=== PATIENT | female | born 1955 | race Caucasian/White ===

== ENCOUNTER 2017-01-14 10:04 | Inpatient (IN) | payer OTHER ==
[~2017-01-14] VITALS: Ht 157.5 cm; Wt 41.3 kg
[2017-01-14 10:09] VITALS: BP_SYST 159
[2017-01-14 10:35] LABS: BASOPHILS # (AUTO) 0.1 K/uL (0.0-0.2); BASOPHILS % (AUTO) 0.8 % (0.0-2.0); EOSINOPHILS % (AUTO) 0.4 % (0.0-4.0); HEMATOCRIT 39.5 % (36-48); HEMOGLOBIN 13.5 g/dL (12.0-16.0); LYMPHOCYTES # (AUTO) 1.7 K/uL (1.0-5.5); LYMPHOCYTES % (AUTO) 16.2 % (20.5-51.5); MEAN CORPUSCULAR HEMOGLOBIN 31 pg (27-31); MEAN CORPUSCULAR HGB CONC 34 % (32-36); MEAN CORPUSCULAR VOLUME 90 fL (79.0-98.0); MONOCYTES # (AUTO) 0.8 K/uL (0.0-1.0); MONOCYTES % (AUTO) 7.5 % (1.7-9.3); NEUTROPHILS % (AUTO) 75.1 % (40.0-70.0); PLATELET COUNT (AUTO) 398 K/uL (130-430); RED BLOOD CELL COUNT(AUTO) 4.41 MIL/uL (4.2-6.2); RED CELL DISTRIBUTION WIDTH 12.6 % (9.0-15.0); WHITE BLOOD COUNT (AUTO) 10.6 K/uL (4.8-10.8)
[2017-01-14 10:39] LABS: CALCIUM 9.3 mg/dL (8.4-11.0); CREATININE 1.33 mg/dL (0.55-1.30); POTASSIUM 4.1 mmol/L (3.5-5.1)
[2017-01-14 10:43] LABS: INR 0.9 (0.8-1.2); PROTHROMBIN TIME 9.9 SECS (9.5-12.5)
[2017-01-14] MEDS ORDERED: IOHEXOL 0 ML IV ONE (10:59)
[2017-01-14 11:00] LABS: ALBUMIN 4.2 g/dL (3.4-4.8); TOTAL BILIRUBIN 0.5 mg/dL (0.0-1.0); TOTAL PROTEIN, SERUM 7.9 g/dL (6.4-8.3)
[2017-01-14] MEDS ORDERED: LORazepam 2 MG/ML VIAL (FOR ER USE) IVP ONE (12:00)
[2017-01-14 12:35] VITALS: BP_SYST 118
[2017-01-14 12:36] VITALS: BP_SYST 118
[2017-01-14 16:00] VITALS: BP_SYST 122
[2017-01-14] MEDS ORDERED: INSULIN REGULAR, HUMAN 100 UNITS/ML, 10 ML VIAL (novoLIN R) SUBCUT PRN (16:45)
[2017-01-14] MEDS ORDERED: DEXTROSE 50% JECT 50 ML DISP.SYRIN IVP PRN (16:45)
[2017-01-14] MEDS ORDERED: ASPIRIN 81 MG TABLET(ECOTRIN) PO ONE (18:15)
[2017-01-14] MEDS ORDERED: ACETAMINOPHEN 325 MG TABLET PO PRN (18:15)
[2017-01-14] MEDS ORDERED: ENOXAPARIN SODIUM 40 MG/0.4 ML SYRINGE SUBCUT SCH (18:15)
[2017-01-14 18:41] LABS: CKMB RELATIVE INDEX 5.7 (0.0-2.9); CREATINE KINASE MB 17.5 ng/mL (0-3.6)
[2017-01-14] MEDS: traMADol HCL HCL 50 MG TABLET (ULTRAM) PO PRN (18:44)
[2017-01-14] MEDS ORDERED: NITROGLYCERIN 0.4 MG TAB.SUBL SL PRN (19:00)
[2017-01-14] MEDS ORDERED: ENOXAPARIN SODIUM 40 MG/0.4 ML SYRINGE ONE (19:02)
[2017-01-14] MEDS: FAMOTIDINE 20 MG TABLET PO SCH (20:28)
[2017-01-14 23:19] VITALS: BP_SYST 98
[2017-01-15 04:32] VITALS: BP_SYST 96
[2017-01-15] MEDS: traMADol HCL HCL 50 MG TABLET (ULTRAM) PO PRN (05:48)
[2017-01-15 06:39] LABS: POTASSIUM 4.2 mmol/L (3.5-5.1)
[2017-01-15 06:40] LABS: CREATININE 1.04 mg/dL (0.55-1.30); TOTAL BILIRUBIN 0.3 mg/dL (0.0-1.0)
[2017-01-15 06:44] LABS: ALBUMIN 3.7 g/dL (3.4-4.8); TOTAL PROTEIN, SERUM 7.2 g/dL (6.4-8.3)
[2017-01-15 08:00] VITALS: BP_SYST 95
[2017-01-15 08:53] LABS: CHOLESTEROL 236 mg/dL (<200); HDL CHOLESTEROL 51 mg/dL (>55); LDL CHOLESTEROL 153 mg/dL (<100); TRIGLYCERIDES 162 mg/dL (30-150)
[2017-01-15 09:05] LABS: BASOPHILS # (AUTO) 0.1 K/uL (0.0-0.2); BASOPHILS % (AUTO) 0.6 % (0.0-2.0); EOSINOPHILS # (AUTO) 0.1 K/uL (0.0-0.4); EOSINOPHILS % (AUTO) 0.7 % (0.0-4.0); HEMATOCRIT 41.6 % (36-48); HEMOGLOBIN 13.9 g/dL (12.0-16.0); LYMPHOCYTES # (AUTO) 2.6 K/uL (1.0-5.5); LYMPHOCYTES % (AUTO) 22.7 % (20.5-51.5); MEAN CORPUSCULAR HEMOGLOBIN 30 pg (27-31); MEAN CORPUSCULAR HGB CONC 33 % (32-36); MEAN CORPUSCULAR VOLUME 91 fL (79.0-98.0); MONOCYTES # (AUTO) 1.1 K/uL (0.0-1.0); MONOCYTES % (AUTO) 9.8 % (1.7-9.3); NEUTROPHILS # (AUTO) 7.4 K/uL (1.8-7.7); NEUTROPHILS % (AUTO) 66.2 % (40.0-70.0); PLATELET COUNT (AUTO) 394 K/uL (130-430); RED BLOOD CELL COUNT(AUTO) 4.59 MIL/uL (4.2-6.2); RED CELL DISTRIBUTION WIDTH 12.8 % (9.0-15.0); WHITE BLOOD COUNT (AUTO) 11.3 K/uL (4.8-10.8)
[2017-01-15] MEDS: FAMOTIDINE 20 MG TABLET PO SCH ×2 (09:08→20:12)
[2017-01-15] MEDS: ASPIRIN 81 MG TABLET(ECOTRIN) PO SCH (09:09)
[2017-01-15] MEDS ORDERED: ACETAMINOPHEN 325 MG TABLET PO PRN (10:30)
[2017-01-15] MEDS: ENOXAPARIN SODIUM 40 MG/0.4 ML SYRINGE SUBCUT SCH ×2 (10:37→20:12)
[2017-01-15 11:21] VITALS: BP_SYST 97
[2017-01-15] MEDS: MORPHINE 2 MG/ML INJ. SYRINGE IVP PRN ×3 (13:09→20:13)
[2017-01-15 16:04] VITALS: BP_SYST 99
[2017-01-15 20:20] VITALS: BP_SYST 107
[2017-01-15 23:35] LABS: BILIRUBIN,URINE NEGATIVE (NEGATIVE); BLOOD, URINE 2+ (NEGATIVE); CLARITY/URINE CLEAR (CLEAR); COLOR,URINE YELLOW (YELLOW); GLUCOSE,URINE NEGATIVE (NEGATIVE); KETONES,URINE NEGATIVE (NEGATIVE); LEUKOCYTE ESTERASE ,URINE NEGATIVE (NEGATIVE); NITRITE, URINE NEGATIVE (NEGATIVE); PROTEIN URINE NEGATIVE (NEGATIVE); UROBILINOGEN,URINE 0.2 (0.2-1.0)
[2017-01-16 00:05] LABS: BARBITURATE, URINE NEGATIVE (NEG <=200); BENZODIAZEPINE, URINE POSITIVE (NEG <=150); CANNABINOID, URINE POSITIVE (NEG <=50); COCAINE, URINE NEGATIVE (NEG <=150); METHAMPHETAMINES SCREEN,URINE NEGATIVE (NEG <=500); OPIATE, URINE POSITIVE (NEG <=100); PHENCYCLIDINE SCREEN,URINE NEGATIVE (NEG <=25); URINE AMPHETAMINE NEGATIVE (NEG <=500); URINE METHADONE NEGATIVE (NEG <=200)
[2017-01-16 00:06] LABS: UR TRICYCLIC ANTIDEPRESSANTS NEGATIVE (NEG <=300); URINE OXYCODONE SCREEN NEGATIVE (NEG <=100); URINE PROPOXYPHENE SCREEN NEGATIVE (NEG <=300)
[2017-01-16 00:08] LABS: BACTERIA,URINE FEW /HPF (None Seen); MUCUS,URINE None Seen /LPF (None Seen); WBC,URINE 0-3 /HPF (0-3)
[2017-01-16 00:42] VITALS: BP_SYST 95
[2017-01-16] MEDS: MORPHINE 2 MG/ML INJ. SYRINGE IVP PRN ×2 (02:16→08:09)
[2017-01-16 03:46] VITALS: BP_SYST 102
[2017-01-16] MEDS: FAMOTIDINE 20 MG TABLET PO SCH (08:09)
[2017-01-16] MEDS: ASPIRIN 81 MG TABLET(ECOTRIN) PO SCH (08:09)
[2017-01-16] MEDS: ENOXAPARIN SODIUM 40 MG/0.4 ML SYRINGE SUBCUT SCH (08:10)
[2017-01-16] MEDS ORDERED: ONDANSETRON HCL 4 MG/2 ML VIAL IVP PRN (09:00)
[2017-01-16] MEDS ORDERED: ATORVASTATIN 20 MG TABLET PO SCH (09:00)
[2017-01-16] MEDS ORDERED: METOPROLOL SUCCINATE 50 MG TAB.SR.24H (TOPROL XL) PO SCH (09:00)
[2017-01-16] MEDS ORDERED: METOPROLOL TARTRATE 50 MG TABLET ONE (09:11)
[2017-01-16] MEDS ORDERED: ONDANSETRON HCL 4 MG/2 ML VIAL ONE (09:11)
[2017-01-16] MEDS ORDERED: METOPROLOL TARTRATE 5 MG/5 ML VIAL IVP ONE (09:35)
[2017-01-16] MEDS ORDERED: METOPROLOL TARTRATE 5 MG/5 ML VIAL ONE (09:45)
[2017-01-16 13:17] VITALS: BP_SYST 110
[2017-01-16 14:36] VITALS: BP_SYST 87
== END 2017-01-16 15:25 | disposition short-term general hospital (02) | DRG 280 ==
LOC: SED 11:41 → STU 12:04
PROVIDERS: ADMIT Internal Medicine; ATTEND Internal Medicine
DX: I21.4 Non-ST elevation (NSTEMI) myocardial infarction (principal); E43 Unspecified severe protein-calorie malnutrition; N17.9 Acute kidney failure, unspecified; J44.9 Chronic obstructive pulmonary disease, unspecified; I10 Essential (primary) hypertension; E11.9 Type 2 diabetes mellitus without complications; F17.200 Nicotine dependence, unspecified, uncomplicated; F41.9 Anxiety disorder, unspecified; G89.4 Chronic pain syndrome; E78.5 Hyperlipidemia, unspecified; Z88.6 Allergy status to analgesic agent; Z79.4 Long term (current) use of insulin; Z79.899 Other long term (current) drug therapy
CPT/HCPCS: 36415; 71250-TC; 80053; 80061; 80307; 81000-TC; 82550-TC; 82553-TC; 82962; 84484; 85025; 85610-TC; 85730-TC; 93005; 93306; 96374; 99285; J1650; J1815; J2060; J2270; J2405; J3490; Q9967

== ENCOUNTER 2022-10-16 15:55 | Inpatient (IN) | payer OTHER ==
[~2022-10-16] VITALS: Ht 154.9 cm; Wt 51.3 kg
[~2022-10-16 15:55] MED LIST: NEU300 PO
--- NOTE | 2022-10-16 15:59 | NUR ---
Patient to ER bed 06 to gown for evaluation. Side rails up.
[2022-10-16 16:00] VITALS: BP_SYST 117
--- NOTE | 2022-10-16 16:24 | NUR ---
FIRST CONTACT. PT MOVED FROM TO [facility]. DIANA REMOVED FOR X-RAY. COMFORT MEASURES AND SUPPORTIVE CARE INITIATED. SEEN BY DR. WOODS. X-RAY AT .
--- NOTE | 2022-10-16 17:03 | NUR ---
X-RAY COMPLETE. NO FURTHER ORDERS AT THIS TIME. CT COMPLETE.
[2022-10-16] MEDS ORDERED: MORPHINE 4 MG INJ. 4 MG/ML VIAL IVP ONE (17:15)
--- NOTE | 2022-10-16 17:57 | NUR ---
covid nasal swab collected and sent to lab
--- NOTE | 2022-10-16 17:59 | NUR ---
AT BEDSIDE EXAMINING PATIENT
[2022-10-16 18:03] LABS: BASOPHILS # (AUTO) 0.1 K/uL (0.0-0.2); BASOPHILS % (AUTO) 1.1 % (0.0-2.0); EOSINOPHILS # (AUTO) 0.2 K/uL (0.0-0.4); EOSINOPHILS % (AUTO) 1.7 % (0.0-4.0); HEMATOCRIT 37.3 % (36-48); HEMOGLOBIN 13.2 g/dL (12.0-16.0); LYMPHOCYTES # (AUTO) 3.4 K/uL (1.0-5.5); LYMPHOCYTES % (AUTO) 34.6 % (20.5-51.5); MEAN CORPUSCULAR HEMOGLOBIN 32 pg (27-31); MEAN CORPUSCULAR HGB CONC 35 % (32-36); MEAN CORPUSCULAR VOLUME 90 fL (79.0-98.0); MONOCYTES # (AUTO) 0.8 K/uL (0.0-1.0); MONOCYTES % (AUTO) 8.7 % (1.7-9.3); NEUTROPHILS # (AUTO) 5.3 K/uL (1.8-7.7); NEUTROPHILS % (AUTO) 53.9 % (40.0-70.0); PLATELET COUNT (AUTO) 327 K/uL (130-430); RED BLOOD CELL COUNT(AUTO) 4.15 MIL/uL (4.2-6.2); RED CELL DISTRIBUTION WIDTH 13.5 % (9.0-15.0); WHITE BLOOD COUNT (AUTO) 9.7 K/uL (4.8-10.8)
[2022-10-16] MEDS ORDERED: HYDROcodone/ACETAMIN 5-325 MG TAB (NORCO/ VICODIN) PO PRN (18:15)
[2022-10-16 18:17] LABS: CREATININE 1.47 mg/dL (0.55-1.30)
[2022-10-16 18:22] LABS: ALBUMIN 3.7 g/dL (3.4-4.8); PROTHROMBIN TIME 9.9 SECS (9.5-12.5); TOTAL BILIRUBIN 0.3 mg/dL (0.0-1.0)
--- NOTE | 2022-10-16 19:32 | NUR ---
Admit bed requested Patient will be admitted to care of Dr.N. CHANDRA. Admitted to TELEMETRY unit. Diagnosis LEFT HIP FRACTURE Inpatient (Yes or No) Y Observation (Yes or No) N Orientation concerns or request close to nursing station (Yes or No) N Covid Status NEG On vent or bipap N Isolation requirements Needs a sitter N From Home (Yes or if No enter name of facility) Y Requires Dialysis (Yes or No) N Med Rec Completed (Yes of No) Y
[2022-10-16 20:33] VITALS: BP_SYST 93
--- NOTE | 2022-10-16 20:33 | NUR ---
ADMISSION NOTE Received patient from ER via gurney. Patient admitted with diagnosis of LEFT HIP FX. Patient is awake, alert, oriented X 4. Patient oriented to hospital room, call light, toileting, pain management and safety-teach back done. Patient informed that their room number is 109A. Personal belongings checked and Belongings List documented. Call light within reach.
[2022-10-16] MEDS: ONDANSETRON HCL 4 MG/2 ML VIAL IVP PRN (22:05)
[2022-10-16] MEDS: MORPHINE 2 MG/ML INJ. SYRINGE IVP PRN (22:06)
--- NOTE | 2022-10-16 23:35 | NUR ---
COX CATHETER INSERTION Inserted by charge nurse using sterile technique. Pt tolerated well with immediate urine return. UA sent to lab
[2022-10-16] MEDS: D5/0.45 NS 1,000 ML IV SCH (23:37)
[2022-10-17] VITALS (9 sets, daily range): BP systolic 86–126
[2022-10-17 00:07] LABS: BILIRUBIN,URINE NEGATIVE (NEGATIVE); CLARITY/URINE CLEAR (CLEAR); COLOR,URINE YELLOW (YELLOW); GLUCOSE,URINE NEGATIVE (NEGATIVE); KETONES,URINE TRACE (NEGATIVE); LEUKOCYTE ESTERASE ,URINE NEGATIVE (NEGATIVE); NITRITE, URINE NEGATIVE (NEGATIVE); PROTEIN URINE NEGATIVE (NEGATIVE); UROBILINOGEN,URINE 0.2 (0.2-1.0)
[2022-10-17 00:15] LABS: BLOOD, URINE TRACE (NEGATIVE)
[2022-10-17 00:37] LABS: BACTERIA,URINE None Seen /HPF (None Seen); WBC,URINE 0-3 /HPF (0-3)
--- NOTE | 2022-10-17 05:03 | NUR ---
PAGED PAGED DOCTOR Percy YOUSSEF FOR ORDERS
[2022-10-17] MEDS ORDERED: NACL 0.9% 1,000 ML IV ONE (05:15)
[2022-10-17] MEDS ORDERED: KETOROLAC TROMETHAMINE 30 MG VIAL IVP PRN (05:15)
--- NOTE | 2022-10-17 05:15 | NUR ---
LOW BP Pt c/o pain in her left hip and asking for pain medication. BP checked and read systolic in the 80s after multiple rechecks. Informed Dr Eduardo (preparation room worker for Dr Rodriguez), ordered 1L NS bolus and toradol IVP for pain.
[2022-10-17] MEDS: KETOROLAC TROMETHAMINE 30 MG VIAL IVP PRN ×3 (05:58→23:40)
--- NOTE | 2022-10-17 07:00 | NUR ---
CLOSING NOTE Pt awake lying in bed. No s/s of respiratory distress. Breathing even and unlabored on RA. BP improved at 103/59. Giles catheter intact and draining by gravity. IV site intact and patent with fluids running at ordered rate. All needs met throughout shift. Fall and safety checks in place with bed in lowest position, bed alarm on, and call light within reach
[2022-10-17] MEDS: ONDANSETRON HCL 4 MG/2 ML VIAL IVP PRN ×3 (08:53→21:03)
[2022-10-17] MEDS: D5/0.45 NS 1,000 ML IV SCH ×2 (08:54→21:22)
[2022-10-17] MEDS: MORPHINE 2 MG/ML INJ. SYRINGE IVP PRN ×3 (08:54→21:04)
[2022-10-17] MEDS ORDERED: ENOXAPARIN SODIUM 30 MG/0.3 ML SYRINGE SUBCUT ONE (13:30)
--- NOTE | 2022-10-17 16:11 | NUR ---
CONSULTATION PAGED REASON FOR CONSULTATION: CARDIAC CLEARANCE WAS CONSULT CALLED? Y PERSON WHO WAS NOTIFIED: TEXT MESSAGED KATEY VALLE CONSULTING PHYSICIAN: KATEY VALLE PLUG PASTER SPECIALTY: CARDIO PLUG PASTER PHONE NUMBER: [phone] REQUESTING PHYSICIAN: JOE JIANG
--- NOTE | 2022-10-17 20:28 | NUR ---
Dr. Daria Weiner s/w and informed patient in severe pain and Morphine, not due, it is q6p. Received medication order same dose change Q4P severe pain and hold Lovenox dose: TORB
[2022-10-17] MEDS ORDERED: MORPHINE 2 MG/ML INJ. SYRINGE ONE (20:50)
[2022-10-17] MEDS: ENOXAPARIN SODIUM 30 MG/0.3 ML SYRINGE SUBCUT SCH (21:00)
--- NOTE | 2022-10-17 21:04 | NUR ---
C/O ; MORPHINE, ZOFRAN PATIENT REPORTS SEVERE PAIN AND REQUESTING PAIN MED AND ZOFRAN, PRESENTLY NO NAUSEA, BUT WANTS TO PREVENT IT. ADMINISTERED MORPHINE AND ZOFRAN ORDERED.
[2022-10-18] VITALS (8 sets, daily range): BP systolic 113–130
--- NOTE | 2022-10-18 00:10 | NUR ---
NPO Reminded of NPO status, she took one last sip of water. Water and food items removed from bedside table and placed NPO cone. VSS stable
--- NOTE | 2022-10-18 02:55 | NUR ---
ROUNDS, RESTING PATIENT RESTING W/EYES CLOSED, NO GRIMACING, NO DISTRESS. SAFETY PRECAUTIONS IN PLACE AND CALL LIGHT W/IN REACH.
[2022-10-18] MEDS: ONDANSETRON HCL 4 MG/2 ML VIAL IVP PRN ×2 (03:55→21:16)
[2022-10-18] MEDS: MORPHINE 2 MG/ML INJ. SYRINGE IVP PRN ×4 (03:56→21:16)
--- NOTE | 2022-10-18 03:56 | NUR ---
PAIN MED; MORPHINE, MRSA SWAB PATIENT AWAKE AND REPORTS PAIN IF SHE MOVES, SHE TRIES TO LYE STILL, BUT PAIN IS RETURNING. REPORTS SEVERE PAIN AND REQUESTING PAIN MED AND ALSO ZOFRAN, NO NAUSEA NOW BUT WANTS TO PREVENT IT. ADMINISTERED MORPHINE AND ZOFRAN ORDERED. ICE PACKS TO LEFT HIP MRSA SWAB; EXPLAINED PROCEDURE SHE AGREED AND SAMPLE TAKEN, WILL SUBMIT TO LAB. Addendum: 10/18/22 at 0430 by Lexii Breaux RN V/S: BP114/69, HR 74, 95% ON ROOM AIR
--- NOTE | 2022-10-18 08:15 | NUR ---
OPENING NOTES: PATIENT IN BED A/OX 4. NO S/S OF DISTRESS. PATIENT COMPLAINING OF PAIN LEVEL OF 8 RADIATING FROM LEFT HIP. BREATHING IS EVEN AND UNLABORED ON RA 97%. WASHED PATIENT FACE PER HER REQUEST AND HAD MY RN ADMINISTER HER IV MORPHINE. PATIENT HAS BEEN NPO SINCE MIDNIGHT FOR SURGERY SCHEDULED AT 12NOON 10/18/22. CONSENT FORMS ARE SIGNED AND IN PATIENT CHART PER SECURITY ARCHITECT NURSE. SURGERY CHECKS LIST IS COMPLETED. ORDERED EKG AND TYPE AND CROSS TO COMPLETE THE CHECKLIST. HUNG NEW IV BAG OF FLUIDS. D5 1/2 NS @100MLS/HR. VITAL SIGNS ARE STABLE. EDUCATED PATIENT ON USE OF CALL LIGHT SHOULD SHE NEED ANYTHING. ALL NEEDS MET AT THIS TIME, SAFETY CHECKS MADE AND CALL LIGHT WITHIN REACH. Addendum: 10/18/22 at 0822 by Franny Sexton LVN HOLDING LOVENOX THAT IS SCHEDULED FOR THIS MORNING DUE TO PENDING SURGERY.
[2022-10-18] MEDS: ENOXAPARIN SODIUM 30 MG/0.3 ML SYRINGE SUBCUT SCH ×2 (08:22→21:28)
--- NOTE | 2022-10-18 10:08 | NUR ---
DR VELÁSQUEZ AT BEDSIDE
--- NOTE | 2022-10-18 11:54 | NUR ---
PT TAKEN TO SURGERY PRE-OP VITALS 98.2 TEMP, 97% O2, 16 R. 86 HEART RATE, 134/71 BP
[2022-10-18] MEDS ORDERED: fentaNYL CITRATE/PF 100 MCG/2 ML AMP ONE (11:55)
[2022-10-18] MEDS ORDERED: NS 1000 ML IV.SOLN IV ONE (11:55)
[2022-10-18] MEDS ORDERED: NS IRRIG SOLN 1000 ML IR ONE (11:55)
[2022-10-18] MEDS ORDERED: MEPERIDINE 50 MG/ML VIAL ONE (11:55)
[2022-10-18] MEDS ORDERED: CEFAZOLIN 2 GM IVPB PREMIX 50 ML IV ONE (11:55)
[2022-10-18] MEDS ORDERED: ONDANSETRON HCL 4 MG/2 ML VIAL ONE (11:55)
[2022-10-18] MEDS ORDERED: PROPOFOL 200MG/ 20ML VIAL (DIPRIVAN) IV ONE (11:55)
[2022-10-18] MEDS ORDERED: SEVOFLURANE 15 MIN GAS INH ONE (11:55)
[2022-10-18] MEDS ORDERED: BUPIVACAINE /EPINEPHRINE/PF 0.5% 30 ML VIAL INJ ONE (11:55)
[2022-10-18] MEDS ORDERED: MEPERIDINE HCL/PF 25 MG/ML DISP.SYRIN IVP PRN (12:30)
[2022-10-18] MEDS ORDERED: NACL 0.9% 1,000 ML IV SCH (12:30)
[2022-10-18] MEDS ORDERED: METOCLOPRAMIDE HCL 10 MG/2 ML VIAL IVP PRN (12:30)
[2022-10-18] MEDS ORDERED: ONDANSETRON HCL 4 MG/2 ML VIAL IVP PRN (12:30)
[2022-10-18] MEDS ORDERED: HYDROmorphone 1 MG/ML INJ. CARTRIDGE IVP PRN (12:30)
[2022-10-18] MEDS ORDERED: KETOROLAC TROMETHAMINE 30 MG VIAL IVP PRN (12:30)
[2022-10-18] MEDS: ceFAZolin SODIUM 2 GM in D5W 100 ML IV SCH ×2 (14:00→21:28)
[2022-10-18] MEDS: HYDROmorphone 1 MG/ML INJ. CARTRIDGE ONE ×2 (14:00→14:15)
--- NOTE | 2022-10-18 14:30 | NUR ---
PT BACK FROM SURGERY. REPOSITIONED FOR COMFORT WITH PILLOW SUPPORT. VITAL SIGNS ARE STABLE. SAFETY CHECKS MADE AND CALL LIGHT WITHIN REACH.
[2022-10-18] MEDS: D5/0.45 NS 1,000 ML IV SCH (15:15)
--- NOTE | 2022-10-18 19:20 | NUR ---
Opening note Received SBAR report from PHILIP Blanton. Patient is awake and watching t.v. Meal tray is on bedside and she reports can't eat more, not much appetite and some nausea. No distress, watching, t.v. Nonlabored breathing on room air. Giles drainage bag to gravity is collecting yellow urine. IVF infusing via IV to LFA. Surgical dressing to left hip is clean, dry and intact. Locked bed in lowest position, side rails up and bed alarm on. Call light is w/in reach.
--- NOTE | 2022-10-18 20:25 | NUR ---
REPOSITION, LINEN Patient's sheets, blankets are wet from IV which was leaking. She was repositioned for comfort, though she preferred to stay supine with pillow support on left hip/side. Provide with new sheets. Ice pack to left hip and also requested a sprite which was given.
--- NOTE | 2022-10-18 21:16 | NUR ---
morphine, zofran Administered Morphine for severe pain and Zofran for nausea (mild) no vomiting.
[2022-10-18] MEDS: KETOROLAC TROMETHAMINE 30 MG VIAL IVP PRN (23:16)
--- NOTE | 2022-10-18 23:35 | NUR ---
Toradol, Bed harris Patient reporting moderate pain and administered Toradol as ordered. She requested bed harris for BM. Had very loose, light brown w/particle stool. She was repositioned for comfort. Safety precautions in place.
[2022-10-19] VITALS (8 sets, daily range): BP systolic 74–126
[2022-10-19] MEDS: D5/0.45 NS 1,000 ML IV SCH ×3 (00:36→21:15)
--- NOTE | 2022-10-19 00:48 | NUR ---
IVF IV alarmed and patient called. Hung new bag of D5 1/2 NS, infusing well.
[2022-10-19] MEDS: MORPHINE 2 MG/ML INJ. SYRINGE IVP PRN (02:06)
--- NOTE | 2022-10-19 02:06 | NUR ---
Morphine, BM c/o severe pain administered Morphine as ordered. She requested bed harris for BM. Had loose, light brown w/particle stool. She was repositioned for comfort. Safety precautions in place.
--- NOTE | 2022-10-19 03:10 | NUR ---
BM requesting bed harris for stool. loose stool., pericare
--- NOTE | 2022-10-19 03:50 | NUR ---
fever patient unable to wait for bedpan and soiled bed. she is anxious and is stating "they are out to get me", "they are doing this to me". She is not confused, though anxious and not her baseline; assessed v/s. 124/57,HR 1087 101.8 temporal scan, resp 20, 95% spo2 room air.
--- NOTE | 2022-10-19 04:00 | NUR ---
, fever, tachy Notified Dr. Brown patient was getting restless; assessed v/s and found: fever 101.8, tachycardia 108; Received septic protocol orders; lactic acid x2, BCx2, NS bolus(30ml/kg); and Tylenol for fever: torb
[2022-10-19] MEDS ORDERED: NS 500 ML IV ONE (04:15)
[2022-10-19] MEDS ORDERED: ACETAMINOPHEN 500 MG TABLET PO PRN (04:15)
[2022-10-19] MEDS ORDERED: NACL 0.9% 1,000 ML IV ONE (04:15)
--- NOTE | 2022-10-19 04:51 | NUR ---
SEPSIS PROTOCOL technical aid took lab draws. NS bolus infusing. Administered Tylenol for fever. Presently reports she is comfortable. henri
[2022-10-19] MEDS: ceFAZolin SODIUM 2 GM in D5W 100 ML IV SCH (06:09)
--- NOTE | 2022-10-19 06:20 | NUR ---
Scheduled antibiotic Scheduled Ancef administered, infusing well. Reviewed side effects and she verbalized understanding. Lab is at bedside for second Lactic acid draw.
--- NOTE | 2022-10-19 07:30 | NUR ---
OPENING NOTES: PT IN BED A/OX 4, TALKING AND OBEYING COMMANDS. THE TAR KETTLE RUNNER RN AND MYSELF CLEANED THE PT HAS SHE HAD A BM. SENT A SPECIMEN OF THE BM TO THE LAB PATIENT HAD 5 WATER STOOLS DURING THE NIGHT. NO S/S OF DISTRESS. PT REPORTED PAIN OF 6. BREATHING IS EVEN AND UNLABORED ON RA 96%. BLOOD PRESSURE IS 74/43. CONTACTED DR CHAPMAN FOR ORDERS AND TO NOTIFY OF BLOOD PRESSURE. WAITING FOR CALL BACK. HAVE BP MACHINE ATTACHED TO PATIENT MONITORING BLOOD PRESSURE EVERY 15 MINUTES. LAST BLOOD PRESSURE CHECKS AT 844AM WAS 88/60. EDUCATED PATIENT ON USE OF CALL LIGHT. SAFETY CHECKS MADE AND CALL LIGHT WITHIN REACH.
--- NOTE | 2022-10-19 08:54 | NUR ---
ANOTHER PAGE TO ATTENDING MD DR CHAPMAN, RE: LOW BP OF 80/43. SPOKE TO LEÓN.
[2022-10-19] MEDS: ENOXAPARIN SODIUM 30 MG/0.3 ML SYRINGE SUBCUT SCH ×2 (09:02→22:08)
[2022-10-19 10:16] LABS: BASOPHILS # (AUTO) 0.1 K/uL (0.0-0.2); BASOPHILS % (AUTO) 0.7 % (0.0-2.0); EOSINOPHILS # (AUTO) 0.1 K/uL (0.0-0.4); EOSINOPHILS % (AUTO) 0.8 % (0.0-4.0); HEMOGLOBIN 10.6 g/dL (12.0-16.0); LYMPHOCYTES # (AUTO) 0.7 K/uL (1.0-5.5); LYMPHOCYTES % (AUTO) 4.7 % (20.5-51.5); MEAN CORPUSCULAR HEMOGLOBIN 30 pg (27-31); MEAN CORPUSCULAR HGB CONC 33 % (32-36); MEAN CORPUSCULAR VOLUME 92 fL (79.0-98.0); MONOCYTES # (AUTO) 1.9 K/uL (0.0-1.0); MONOCYTES % (AUTO) 12.4 % (1.7-9.3); NEUTROPHILS # (AUTO) 12.5 K/uL (1.8-7.7); NEUTROPHILS % (AUTO) 81.4 % (40.0-70.0); PLATELET COUNT (AUTO) 270 K/uL (130-430); RED BLOOD CELL COUNT(AUTO) 3.48 MIL/uL (4.2-6.2); WHITE BLOOD COUNT (AUTO) 15.3 K/uL (4.8-10.8)
[2022-10-19 10:21] LABS: CALCIUM 7.3 mg/dL (8.4-11.0); CREATININE 1.09 mg/dL (0.55-1.30)
[2022-10-19 10:27] LABS: ALBUMIN 2.5 g/dL (3.4-4.8); TOTAL BILIRUBIN 0.5 mg/dL (0.0-1.0)
[2022-10-19] MEDS: NACL 0.9% 1,000 ML IV SCH ×2 (10:43→18:30)
[2022-10-19] MEDS ORDERED: traMADol HCL HCL 50 MG TABLET (ULTRAM) PO PRN ×2 (11:30→11:45)
[2022-10-19] MEDS ORDERED: NALOXONE HCL 0.4 MG/ML AMP (NARCAN) IVP ONE (11:30)
[2022-10-19] MEDS ORDERED: MELOXICAM 7.5 MG TABLET PO PRN (11:45)
--- NOTE | 2022-10-19 12:01 | NUR ---
NARCAN GIVEN BY RN. PT BLOOD PRESSURE AT 111/ 75. HEART RATE 88, O2 99%, RESPIRATIONS 16.
[2022-10-19] MEDS: traMADol HCL HCL 50 MG TABLET (ULTRAM) PO PRN (15:53)
--- NOTE | 2022-10-19 18:42 | NUR ---
CLOSING NOTES: PT IN BED A/OX 4. FAMILY AT BEDSIDE. NO S/S OF DISTRESS OR PAIN REPORTED. BREATHING IS EVEN AND UNLABORED ON RA 97% PT VITALS SIGNS ARE STABLE. IV FLUIDS ARE RUNNING. EDUCATED PT ON USE OF CALL LIGHT AND IT IS WITHIN REACH. ALL NEEDS MET AT THIS TIME, SAFETY CHECKS MADE AND CALL LIGHT WITHIN REACH.
--- NOTE | 2022-10-19 20:30 | NUR ---
RECEIVED PATIENT AT BEDSIDE. AXO 4 EATING DINNER. NO S/S OF DISTRESS OR PAIN. BREATHING IS UNLABORED RA 96. VITALS ARE STABLE. IV FLUIDS ARE RUNNING. ALL NEEDS MET AT THIS TIME. SAFETY CHECKS DONE AND CALL LIGHT WITH IN REACH.
[2022-10-19] MEDS: MELOXICAM 7.5 MG TABLET PO PRN (22:44)
--- NOTE | 2022-10-19 22:46 | NUR ---
PATIENT STATES AN 8 OUT OF 10 PAIN. ADMINISTERED MELOXICAM.
[2022-10-20 00:17] VITALS: BP_SYST 126
[2022-10-20] MEDS: D5/0.45 NS 1,000 ML IV SCH ×2 (06:17→21:52)
[2022-10-20 06:30] LABS: BASOPHILS % (AUTO) 0.3 % (0.0-2.0); EOSINOPHILS # (AUTO) 0.3 K/uL (0.0-0.4); EOSINOPHILS % (AUTO) 2.4 % (0.0-4.0); HEMATOCRIT 27.9 % (36-48); HEMOGLOBIN 9.3 g/dL (12.0-16.0); LYMPHOCYTES # (AUTO) 2.7 K/uL (1.0-5.5); LYMPHOCYTES % (AUTO) 20.7 % (20.5-51.5); MEAN CORPUSCULAR HEMOGLOBIN 30 pg (27-31); MEAN CORPUSCULAR HGB CONC 33 % (32-36); MEAN CORPUSCULAR VOLUME 91 fL (79.0-98.0); MONOCYTES # (AUTO) 1.4 K/uL (0.0-1.0); MONOCYTES % (AUTO) 10.2 % (1.7-9.3); NEUTROPHILS # (AUTO) 8.8 K/uL (1.8-7.7); NEUTROPHILS % (AUTO) 66.4 % (40.0-70.0); PLATELET COUNT (AUTO) 248 K/uL (130-430); RED BLOOD CELL COUNT(AUTO) 3.08 MIL/uL (4.2-6.2); RED CELL DISTRIBUTION WIDTH 13.9 % (9.0-15.0); WHITE BLOOD COUNT (AUTO) 13.2 K/uL (4.8-10.8)
--- NOTE | 2022-10-20 06:38 | NUR ---
CLOSING NOTES PATIENT IS ASLEEP IN BED. FLUIDS REPLACED. NO S/S OF PAIN OR DISCOMFORT AT THIS TIME. SAFETY CHECKS ARE DONE AND CALL LIGHT WITH IN REACH.
[2022-10-20 07:07] LABS: CALCIUM 7.1 mg/dL (8.4-11.0); CREATININE 0.85 mg/dL (0.55-1.30)
[2022-10-20 08:00] VITALS: BP_SYST 122
--- NOTE | 2022-10-20 08:00 | NUR ---
INITIAL NOTE: Received Patient lying in bed, ion position of comfort. Patient states slight left hip, but tolerable at this time. Dressing to surgical site clean, dry & intact. No s/s of acute distress noted. Breathing even & non-labored. Lung sounds clear all lobes. Vitals WNL. 22 gauge IV to right forearm, flushes well. Currently running D5 1/2 ns @ 100 mL/hr. No redness or pain noted at site. No edema noted. White board updated with current information. Bed in low, locked position. Call light within reach.
[2022-10-20] MEDS: traMADol HCL HCL 50 MG TABLET (ULTRAM) PO PRN ×3 (08:55→21:52)
[2022-10-20] MEDS: ENOXAPARIN SODIUM 30 MG/0.3 ML SYRINGE SUBCUT SCH ×2 (08:58→21:51)
--- NOTE | 2022-10-20 10:00 | NUR ---
Patient was given all due AM meds as per orders. Patient was given PRN Ultram for pain & awaiting PT. Tolerated well. Patient clean & dry. In position of comfort. Bed in low, locked position. Call light & personal items within reach.
[2022-10-20 11:22] VITALS: BP_SYST 103
[2022-10-20] MEDS ORDERED: D5/0.45 NS 1,000 ML IV SCH (11:45)
--- NOTE | 2022-10-20 12:00 | NUR ---
Patient resting in bed, awaiting PT. 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 Patient voiced concerns about resources for the care of herself & her once she returns home. Patient did state that she is able to reach out to some family & other help for possible help with care at home after her discharge. Patient was witnessed making some phone calls to make arrangements. No s/s of acute distress noted. Denies pain at this time. Call light within reach. Bed in low, locked position.
[2022-10-20] MEDS: MELOXICAM 7.5 MG TABLET PO PRN (14:31)
--- NOTE | 2022-10-20 14:35 | NUR ---
Patient c/o pain & still awaiting PT. Admin PRN Mobic according to order. Patient was given a basin of warm water with body wash & some wash cloths to wash her face and upper body, per her request. Patient stated she felt happy to be able to wash her face and refresh a little bit. Patient seems to feel a bit more encouraged from the last entry. No signs of distress noted. Bed in low position, wheels locked.
[2022-10-20 15:23] VITALS: BP_SYST 116
--- NOTE | 2022-10-20 16:20 | NUR ---
Patient resting in bed. PT advised they will be coming shortly to work with Patient. Patient had PRN Mobic but still has pain. Will premedicate with available Ultram as orders permit, per patient request prior to PT arrival. Bed in low position. Bed alarm active. Patient in no acute distress. Call light and personal items within reach.
--- NOTE | 2022-10-20 19:20 | NUR ---
Transferred care to RUDOLPH Barron. Patient is currently stable & resting in bed in position of comfort. Bed in low position. Call light within reach.
[2022-10-20 20:00] VITALS: BP_SYST 113
[2022-10-21 00:07] VITALS: BP_SYST 97
[2022-10-21 06:23] LABS: BASOPHILS # (AUTO) 0.1 K/uL (0.0-0.2); BASOPHILS % (AUTO) 0.6 % (0.0-2.0); EOSINOPHILS # (AUTO) 0.5 K/uL (0.0-0.4); EOSINOPHILS % (AUTO) 4.8 % (0.0-4.0); HEMATOCRIT 28.4 % (36-48); HEMOGLOBIN 9.7 g/dL (12.0-16.0); LYMPHOCYTES # (AUTO) 3.2 K/uL (1.0-5.5); LYMPHOCYTES % (AUTO) 30.1 % (20.5-51.5); MEAN CORPUSCULAR HEMOGLOBIN 31 pg (27-31); MEAN CORPUSCULAR HGB CONC 34 % (32-36); MEAN CORPUSCULAR VOLUME 90 fL (79.0-98.0); NEUTROPHILS # (AUTO) 5.9 K/uL (1.8-7.7); NEUTROPHILS % (AUTO) 55.5 % (40.0-70.0); PLATELET COUNT (AUTO) 271 K/uL (130-430); RED BLOOD CELL COUNT(AUTO) 3.14 MIL/uL (4.2-6.2); RED CELL DISTRIBUTION WIDTH 13.6 % (9.0-15.0); WHITE BLOOD COUNT (AUTO) 10.7 K/uL (4.8-10.8)
[2022-10-21 06:57] LABS: CALCIUM 7.4 mg/dL (8.4-11.0); CREATININE 0.82 mg/dL (0.55-1.30)
--- NOTE | 2022-10-21 07:36 | NUR ---
pt medicated x1 for pain. pt slept through most of the night. briggs cath draining to gravity. surgical dressing intact. all needs meet during shift endorsed care to am nurse
[2022-10-21 08:00] VITALS: BP_SYST 108
--- NOTE | 2022-10-21 08:00 | NUR ---
INITIAL NOTE: Received Patient sitting in bed, no apparent distress noted. Breathing is even & unlabored. Lungs clear, all lobes. Patient is pleasant. States she has slight pain but it is tolerable & refuses pain meds at this time. 22 gauge IV to right forearm. Vitals WNL. Bed is in low, locked position with call light & personal items within reach.
[2022-10-21] MEDS: ENOXAPARIN SODIUM 30 MG/0.3 ML SYRINGE SUBCUT SCH (09:49)
[2022-10-21] MEDS: MELOXICAM 7.5 MG TABLET PO PRN (09:51)
[2022-10-21] MEDS ORDERED: ACET-2634 PO (11:25)
[2022-10-21 11:59] VITALS: BP_SYST 100
--- NOTE | 2022-10-21 12:00 | NUR ---
Received discharge order with Home Health, PT & pain management. Discussed discharge with Patient & informed Patient to begin discussing discharge arrangements with support system to plan for later today. Patient states she can arrange for family to transport her home.
[2022-10-21] MEDS: traMADol HCL HCL 50 MG TABLET (ULTRAM) PO PRN (13:22)
--- NOTE | 2022-10-21 13:30 | NUR ---
Patient was given PRN Ultram for pain just after 1300 to premedicate for PT. Removed briggs catheter from Patient by withdrawing 10 mL fluid from balloon with syringe until no resistance was felt with gentle tug. Patient stated no pain during removal & 1,000 mL clear yellow urine was drained from briggs bag. Patient was instructed that she needs to be able to void independently prior to discharge. Patient is concerned about packing up belongings & was told that staff will assist her when the time comes. Bed in low position, locked with bed alarm on. Patient was reminded not to exit bed unassisted even though she has been walking with PT & is scheduled for discharge. Call light within reach.
[2022-10-21] MEDS ORDERED: POTASSIUM CHLORIDE 20 MEQ TAB.PRT.SR PO ONE (13:45)
[2022-10-21] MEDS: D5/0.45 NS 1,000 ML IV SCH (14:23)
--- NOTE | 2022-10-21 14:25 | NUR ---
Patient given 40 MeQ Potassium Chloride as ordered. States she does not feel the urge to void at this time. PT is is the room & assisting Patient to exit bed & walk. Tolerating well. Patient was asked about a waker at home & states that there is one & called to request her family members to locate it. Patient states pain is relieves with PRN meds provided. No acute distress noted.
[2022-10-21 14:57] VITALS: BP_SYST 112
--- NOTE | 2022-10-21 15:37 | NUR ---
Patient was able to void independently just over one hour following briggs catheter removal. No c/o pain or difficulty with urination. Patient was assisted back to bed & Nurse instructed Patient she can call family to arrange pickup for discharge.
--- NOTE | 2022-10-21 16:45 | NUR ---
Reviewed discharge paperwork with Patient, including instructions, belongings list & medication handouts. Patient was instructed regarding discharge medications sent to pharmacy as only Acetaminophen transmitted electronically. Aspirin & Mobic to be called in by Dr. Dozier. Patient was provided Dr. Dozier exchange number in the event that there is an issue at the pharmacy, per charge nurse. (Dr. Dozier was previously made aware of the discrepancy with electronic transmission & was requested to call RX in by charge nurse.) Patient verbalized understanding of all discharge instructions and signed hospital copies. IV removed & only slight bleeding noted to site. Clean, dry dressing applied. ID band & telemetry box/leads removed. Patient was taken to private vehicle & assisted inside, seatbelt applied.
[2022-10-21 17:24] VITALS: BP_SYST 117
--- NOTE | 2022-10-24 08:30 | NUR ---
PHYSICAL THERAPY CO-SIGN The Physical Therapy Progress Notes documented by Branding Machine Tender have been reviewed. Reviewed/Co-Signed by: Jamarcus Farmer Documentation Done by:VIOLETA RAYMOND Addendum: 10/24/22 at 0831 by Jamarcus Farmer PT Amended: Links added.
== END 2022-10-21 16:45 | disposition home or self-care (01) | DRG 480 ==
LOC: SED 15:55 → STU 18:01 → SMU 10-20 16:17
PROVIDERS: ADMIT Student in an Organized Health Care Education/Training Program; ATTEND Student in an Organized Health Care Education/Training Program
PROC: 0QS734Z Reposition Left Upper Femur with Internal Fixation Device, Percutaneous Approach (ICD-10-PCS; principal; 2022-10-18 14:00)
DX: S72.012A Unspecified intracapsular fracture of left femur, initial encounter for closed fracture (principal); N17.0 Acute kidney failure with tubular necrosis; J44.9 Chronic obstructive pulmonary disease, unspecified; W18.39XA Other fall on same level, initial encounter; F41.9 Anxiety disorder, unspecified; F17.210 Nicotine dependence, cigarettes, uncomplicated; Z20.822 Contact with and (suspected) exposure to COVID-19; Z88.5 Allergy status to narcotic agent; Z79.899 Other long term (current) drug therapy; Y93.89 Activity, other specified; Y92.89 Other specified places as the place of occurrence of the external cause; Y99.8 Other external cause status
CPT/HCPCS: 36415; 71045; 72170-TC; 72192-TC; 73502; 73552; 76000; 76376; 80048; 80053; 81000; 82550; 83605; 83735; 83880; 84484; 85025; 85610-TC; 85730-TC; 86886; 86900; 86901; 87040; 87045-TC; 87046; 87081; 87086; 87230-TC; 93005; 93306; 94010; 96374; 97116-GP; 97530-GP; 99285; G0378; J0690; J1170; J1650; J1885; J2175; J2270; J2310; J2405; J2704; J3010; J3490; J7030; J7060